=== PATIENT | female | born 1985 | race Caucasian/White ===

== ENCOUNTER 2022-10-30 19:39 | Emergency (ER) | payer SELFPAY | END 2022-10-30 20:15 | disposition left against medical advice (07) | LOC: ERS 19:39 | DX: Z53.21 Procedure and treatment not carried out due to patient leaving prior to being seen by health care provider (principal) ==

== ENCOUNTER 2022-12-25 08:33 | Outpatient (CLI) | payer OTHER | END 2022-12-25 08:34 | disposition home or self-care (01) | LOC: BICRAD 08:33 | PROVIDERS: ATTEND Pediatrics | DX: M25.561 Pain in right knee (principal) ==

== ENCOUNTER 2023-01-09 12:43 | Outpatient (CLI) | payer OTHER | END 2023-01-09 12:44 | disposition home or self-care (01) | LOC: BICMRI 12:43 | PROVIDERS: ATTEND Pediatrics | DX: M25.561 Pain in right knee (principal); M23.91 Unspecified internal derangement of right knee; M22.8X1 Other disorders of patella, right knee ==

== ENCOUNTER 2023-02-03 16:55 | Emergency (ER) | payer OTHER ==
[2023-02-03 17:39] LABS: Bacteria/HPF None Seen HPF (None Seen); Bilirubin Negative (Negative); Blood, Urine Negative (Negative); CAUTI Indications for Culture Dysuria,urgency,freq; Clarity Clear (Clear); Glucose, Urine (Dipstick) Normal (Negative); Ketone, Urine Negative (Negative); Leukocyte Negative Leu/uL (Negative); Nitrite Negative (Negative); Protein, Urine (Dipstick) 30 mg/dL (Neg-Trace); RBC/HPF 0-3 HPF (0-3); Specific Gravity, Urine 1.031 (1.002-1.036); WBC/HPF 0-3 HPF (0-3)
[2023-02-03 17:40] LABS: Pregnancy Test - Urine (BHCG) Negative (Negative); Pregu Control Background? CLEAR/WHITE (CLR/WHITE); Pregu Control Bar Appear? YES (CONTROL BAR); Specific Gravity 1.031 (1.002-1.036); Urine Culture Reflex No No
[2023-02-03 17:41] LABS: #Monocytes 0.5 thou/uL (0.11-0.59); #Neutrophils 7.9 thou/uL (1.40-6.50); %Basophils 0.3 % (0.0-1.0); %Eosinophils 0.4 % (0.0-10.0); %Lymphocytes 20.4 % (21.0-51.0); %Neutrophils 73.5 % (42.0-75.0); Hemoglobin 14.6 g/dL (12.0-16.0); Mean Corpuscular HGB CONC 34.8 g/dL (32.0-36.0); Mean Corpuscular Hemoglobin 32.4 pg (27.0-31.0); Mean Corpuscular Volume 92.9 fl (78.0-98.0); Platelet Count 265 10x3/uL (130-400); RBC Distribution Width 12.5 % (11.5-14.5); Red Blood Cell (RBC) Count 4.51 mill/uL (4.20-5.40); White Blood Cell (WBC) Count 10.8 10x3/uL (4.8-10.8)
[2023-02-03 18:03] LABS: ALT (SGPT) 18 U/L (8-55); AST (SGOT) 20 U/L (5-34); Albumin 4.5 g/dL (3.5-5.0); Alkaline Phosphatase 59 U/L (40-110); Anion Gap 4 mmol/L (10-20); BUN (Urea Nitrogen) 8 mg/dL (7.0-18.7); Bilirubin, Total 0.3 mg/dL (0.2-1.2); Calc. Creatinine Clearance 0 mL/min (70-130); Calcium 9.4 mg/dL (7.8-10.44); Carbon Dioxide 20 mmol/L (22-29); Chloride 114 mmol/L (98-107); Estimated GFR 72; Globulin 2.7 g/dL (2.4-3.5); Glucose 120 mg/dL (70-105); Lipase 9 U/L (8-78); Potassium 4.1 mmol/L (3.5-5.1); Protein, Total 7.2 g/dL (6.0-8.3); Sodium 134 mmol/L (136-145)
== END 2023-02-03 19:02 | disposition home or self-care (01) ==
LOC: ERS 16:55
DX: N39.0 Urinary tract infection, site not specified (principal); K80.20 Calculus of gallbladder without cholecystitis without obstruction; F17.210 Nicotine dependence, cigarettes, uncomplicated; E03.9 Hypothyroidism, unspecified; Z79.899 Other long term (current) drug therapy
CPT/HCPCS: 76705; 80053; 81001; 81025; 83690; 84484; 85025; 93005

== ENCOUNTER 2023-03-09 20:16 | Emergency (ER) | payer OTHER ==
[2023-03-09] MEDS ORDERED: Ondansetron PF 4 MG/2 ML Vial ONE (20:53)
[2023-03-09] MEDS ORDERED: Ketorolac Tromethamine 30 MG/ML VIAL ONE (20:53)
[2023-03-09 20:58] LABS: Bacteria/HPF None Seen HPF (None Seen); Bilirubin Negative (Negative); Blood, Urine Negative (Negative); CAUTI Indications for Culture Pelvic or flank pain; Clarity Clear (Clear); Glucose, Urine (Dipstick) Normal (Negative); Ketone, Urine Negative (Negative); Leukocyte Negative Leu/uL (Negative); Nitrite Negative (Negative); Protein, Urine (Dipstick) Negative (Neg-Trace); RBC/HPF 0-3 HPF (0-3); Specific Gravity, Urine 1.015 (1.002-1.036); Urobilinogen Normal mg/dL (Less than 2); WBC/HPF 0-3 HPF (0-3); pH, Urine 6.5 (5.0-9.0)
[2023-03-09 21:00] LABS: Urine Culture Reflex No No
[2023-03-09 21:03] LABS: #Eosinphils 0.1 thou/uL (0.0-0.7); #Monocytes 0.5 thou/uL (0.11-0.59); #Neutrophils 4.8 thou/uL (1.40-6.50); %Basophils 0.5 % (0.0-1.0); %Eosinophils 1.1 % (0.0-10.0); %Lymphocytes 34.7 % (21.0-51.0); %Monocytes 5.9 % (0.0-10.0); %Neutrophils 57.7 % (42.0-75.0); Hematocrit 41.1 % (36.0-47.0); Hemoglobin 14.2 g/dL (12.0-16.0); Mean Corpuscular HGB CONC 34.5 g/dL (32.0-36.0); Mean Corpuscular Hemoglobin 32.3 pg (27.0-31.0); Mean Corpuscular Volume 93.6 fl (78.0-98.0); Mean Platelet Volume 9.4 fL (7.4-10.4); Platelet Count 267 10x3/uL (130-400); RBC Distribution Width 11.9 % (11.5-14.5); Red Blood Cell (RBC) Count 4.39 mill/uL (4.20-5.40); White Blood Cell (WBC) Count 8.3 10x3/uL (4.8-10.8)
[2023-03-09 21:31] LABS: ALT (SGPT) 13 U/L (8-55); AST (SGOT) 10 U/L (5-34); Albumin 4.3 g/dL (3.5-5.0); Alkaline Phosphatase 80 U/L (40-110); Anion Gap 11 mmol/L (10-20); BUN (Urea Nitrogen) 16 mg/dL (7.0-18.7); Bilirubin, Total 0.2 mg/dL (0.2-1.2); Calc. Creatinine Clearance 0 mL/min (70-130); Calcium 9.4 mg/dL (7.8-10.44); Carbon Dioxide 23 mmol/L (22-29); Chloride 108 mmol/L (98-107); Estimated GFR 81; Globulin 2.8 g/dL (2.4-3.5); Glucose 131 mg/dL (70-105); Potassium 3.6 mmol/L (3.5-5.1); Protein, Total 7.1 g/dL (6.0-8.3); Sodium 138 mmol/L (136-145)
== END 2023-03-09 22:00 | disposition home or self-care (01) ==
LOC: ERS 20:16
DX: R10.9 Unspecified abdominal pain (principal); E03.9 Hypothyroidism, unspecified; F17.210 Nicotine dependence, cigarettes, uncomplicated
CPT/HCPCS: 36415; 80053; 81001; 85025; 96374; 96375; J1885; J2405

== ENCOUNTER 2023-03-21 08:28 | Outpatient (CLI) | payer OTHER ==
[2023-03-21 09:37] LABS: Hematocrit 40.1 % (34.9-44.5)
== END 2023-03-21 08:29 | disposition home or self-care (01) ==
LOC: LABBT 08:28
PROVIDERS: ATTEND Student in an Organized Health Care Education/Training Program
DX: Z01.812 Encounter for preprocedural laboratory examination (principal); E04.1 Nontoxic single thyroid nodule
CPT/HCPCS: 85014

== ENCOUNTER 2024-04-26 13:43 | Emergency (ER) | payer OTHER ==
[~2024-04-26 13:43] MED LIST: Iopamidol-370 76% 500 ML MDV (1 ML CHARGE) ONE
[2024-04-26] MEDS ORDERED: Ketorolac Tromethamine 30 MG (1 mL) VIAL ONE (14:22)
[2024-04-26 14:23] LABS: #Basophils 0.04 10x3/uL (0.0-0.2); %Basophils 0.5 % (0.0-1.0); %Eosinophils 0.8 % (0.0-10.0); %Lymphocytes 35.6 % (21.0-51.0); %Monocytes 8.5 % (0.0-10.0); %Neutrophils 54.4 % (42.0-75.0); Hematocrit 43.7 % (36.0-47.0); Hemoglobin 14.8 g/dL (12.0-16.0); Mean Corpuscular HGB CONC 33.9 g/dL (32.0-36.0); Mean Corpuscular Hemoglobin 32.2 pg (27.0-31.0); Mean Corpuscular Volume 95.2 fL (78.0-98.0); Platelet Count 246 10x3/uL (130-400); RBC Distribution Width 12.4 % (11.5-14.5); Red Blood Cell (RBC) Count 4.59 mill/uL (4.20-5.40)
[2024-04-26] MEDS ORDERED: Lorazepam 2 MG/ML VIAL ONE (14:23)
[2024-04-26 14:45] LABS: Acetaminophen Less than 10 mcg/mL (Less than 10); Alcohol Less than 10.0 mg/dL (Less than 10); Salicylate Less than 8.0 mg/dL (Less than 8.0)
[2024-04-26 14:46] LABS: ALT (SGPT) 13 U/L (8-55); AST (SGOT) 13 U/L (5-34); Alkaline Phosphatase 78 U/L (40-110); Anion Gap 11 mmol/L (10-20); BUN (Urea Nitrogen) 11 mg/dL (7.0-18.7); Bilirubin, Total 0.3 mg/dL (0.2-1.2); Calc. Creatinine Clearance 0 mL/min (70-130); Calcium 9.3 mg/dL (7.8-10.44); Carbon Dioxide 26 mmol/L (22-29); Chloride 104 mmol/L (98-107); Estimated GFR 90; Globulin 2.9 g/dL (2.4-3.5); Glucose 104 mg/dL (70-105); Potassium 3.8 mmol/L (3.5-5.1); Protein, Total 6.9 g/dL (6.0-8.3); Sodium 137 mmol/L (136-145)
[2024-04-26 15:06] LABS: BHCG - Serum Negative (NEGATIVE); Pregs Control Background? CLEAR/WHITE (CLR/WHITE); Pregs Control Bar Appear? YES (CONTROL BAR)
== END 2024-04-26 15:24 | disposition home or self-care (01) ==
LOC: ERS 13:43
DX: R10.9 Unspecified abdominal pain (principal); K21.9 Gastro-esophageal reflux disease without esophagitis; E03.9 Hypothyroidism, unspecified; F17.210 Nicotine dependence, cigarettes, uncomplicated; Z79.01 Long term (current) use of anticoagulants; Z55.6 Problems related to health literacy
CPT/HCPCS: 36415; 74177; 80053; 80307; 84703; 85025; 96361; 96374; 96375; J1885; J2060; Q9967